=== PATIENT | male | born 1975 | race Caucasian/White ===

== ENCOUNTER 2016-08-04 21:46 | Emergency (ER) | payer BC ==
[~2016-08-04] VITALS: Ht 175.3 cm; Wt 88.6 kg
[2016-08-04] MEDS ORDERED: GI COCKTAIL 55 ML UDC PO ONE (22:25)
[2016-08-04] MEDS ORDERED: BELLADONNA/PHENOBARBITAL ELIXIR (DONNATAL) 10 ML UDC ONE (22:41)
[2016-08-04] MEDS ORDERED: MAG HYDROX/AL HYDROX/SIMETH 400-400-40/5 ML (MAG-AL PLUS XS) 30 ML UDC ONE (22:41)
[2016-08-04] MEDS ORDERED: LIDOCAINE 2% VISCOUS 20ML UDC PO ONE (22:41)
[2016-08-04 22:45] LABS: BASOPHILS % (AUTO) 1 % (0-2); EOSINOPHILS # (AUTO) 0.1 10^3uL; EOSINOPHILS % (AUTO) 1 % (0-4); LYMPHOCYTES # (AUTO) 2.1 X10^3; MEAN CORPUSCULAR HEMOGLOBIN 28.8 PG (26.0-34.0); MEAN CORPUSCULAR VOLUME 82 FL (80-100); MONOCYTES # (AUTO) 0.5 X10^3; MONOCYTES % (AUTO) 8 % (3-11); NEUTROPHILS # (AUTO) 3.5 X10^3; NEUTROPHILS % (AUTO) 56 % (51-67); PLATELET COUNT 226 10^3uL (150-450); WHITE BLOOD COUNT 6.16 10^3uL (4.0-11.0)
[2016-08-04 23:40] LABS: ALBUMIN 4.3 g/dL (3.4-5.0); ALKALINE PHOSPHATASE 84 U/L (38-126); BUN/CREATININE RATIO 13 (10-20); CALCULATED IONIZED CALCIUM 4.2 mg/dL (3.8-4.6); TOTAL PROTEIN 7.2 g/dL (6.4-8.5)
[2016-08-05 00:22] VITALS: BP 122/77
== END 2016-08-05 00:10 | disposition home or self-care (01) ==
LOC: ED 21:46
DX: K21.9 Gastro-esophageal reflux disease without esophagitis (principal)
CPT/HCPCS: 36415; 71010; 80053; 84484; 85025; 93005; 93010; 99282; 99284